=== PATIENT | male | born 1985 | race Caucasian/White ===

== ENCOUNTER 2022-01-27 06:09 | Day surgery (SDC) | payer MEDICAID ==
[2022-01-27] MEDS ORDERED: Lactated Ringers 1,000 ML IV ONE (06:42)
[2022-01-27 07:30] LABS: ESTIMATED GFR > 60 mL/min (>60)
[2022-01-27] MEDS ORDERED: Iopamidol 612 MG/ML 100 ML Bottle IVPUSH ONE (07:39)
[2022-01-27] MEDS ORDERED: Ketorolac 15 MG/ML SDV IVPUSH ONE (08:33)
[2022-01-27] MEDS ORDERED: Lidocaine 1% with EPINEPHrine 1:100,000 20 ML MDV ONE (12:30)
[2022-01-27] MEDS ORDERED: Propofol 200 MG/20 ML SDV ONE ×4 (13:10→13:50)
[2022-01-27] MEDS ORDERED: Ketamine 500 mg/10 ML MDV ONE (13:21)
== END 2022-01-27 16:00 | disposition home or self-care (01) ==
LOC: JD.ED 06:09 → JD.SDS 10:06
PROVIDERS: ATTEND Surgery
DX: K61.0 Anal abscess (principal); F41.9 Anxiety disorder, unspecified; F32.A Depression, unspecified; K21.9 Gastro-esophageal reflux disease without esophagitis; E66.9 Obesity, unspecified; Z88.2 Allergy status to sulfonamides; Z68.41 Body mass index [BMI] 40.0-44.9, adult; F17.210 Nicotine dependence, cigarettes, uncomplicated
CPT/HCPCS: 36415; 46050; 72193; 80053; 85025; 87070; 87075; 87077; 87186; 87205; 93005; 96374; 99284; J1885; J2704; J3490; J7120; Q9967; 00902; 93010; 99283

== ENCOUNTER 2022-09-26 18:17 | Emergency (ER) | payer MEDICAID ==
[2022-09-26 19:56] LABS: ESTIMATED GFR 88 mL/min (>60)
== END 2022-09-26 20:36 | disposition home or self-care (01) ==
LOC: JD.ED 18:17
DX: I49.1 Atrial premature depolarization (principal); E66.9 Obesity, unspecified; Z68.42 Body mass index [BMI] 45.0-49.9, adult; Z72.0 Tobacco use; Z88.2 Allergy status to sulfonamides
CPT/HCPCS: 36415; 80053; 84484; 93005; 93010; 99283; 99285